=== PATIENT | female | born 1965 | race Caucasian/White ===

== ENCOUNTER 2018-05-15 11:54 | Emergency (ER) | payer OTHER ==
[~2018-05-15] VITALS: Ht 182.9 cm; Wt 56.7 kg
[~2018-05-15 11:54] MED LIST: NEXIUM20 MG PO; ZANTAC150 MG PO
[2018-05-15] MEDS ORDERED: INDOMETHACIN50 MG PO (14:03)
== END 2018-05-15 14:08 | disposition home or self-care (01) ==
LOC: ED 11:54
DX: R10.9 Unspecified abdominal pain (principal); F17.200 Nicotine dependence, unspecified, uncomplicated; Z88.2 Allergy status to sulfonamides
CPT/HCPCS: 74176; 81001; 96372; 99284-25; J2270; J2550

== ENCOUNTER 2018-07-19 07:40 | Day surgery (SDC) | payer OTHER ==
[~2018-07-19] VITALS: Ht 182.9 cm; Wt 56.2 kg
[~2018-07-19 07:40] MED LIST changes: +CYCLOBENZAPRINE10 MG PO; +GUMMI BEAR MUL1 EACH PO; +IBUPROFEN200 M1 PO; +INDOMETHACIN50 MG PO; +PREDNISONE20 MG PO
[2018-07-19] MEDS ORDERED: VITAMIN D250 MCG PO (07:53)
[2018-07-19] MEDS ORDERED: PRILOSEC OTC20 MG PO (07:54)
[2018-07-19] MEDS ORDERED: MOBIC7.5 MG PO (07:54)
--- NOTE | 2018-07-19 09:29 | NUR ---
07/19/18 0929 Roro Wilks 0923 PATIENT ARRIVES TO PACU SLEEPING, DOES NOT RESPOND TO VERBAL STIMULI. RESP EVEN AND UNLABORED, NC AT 2 LITERS. 09 PATIENT OPENES EYES, DOES NOT VERBALIZE, BACK TO SLEEP. RESP EVEN AND UNLABORED, OXYGEN OFF, ROOM AIR SATS >95%.
--- NOTE | 2018-07-19 12:29 | NUR ---
PT REPORTS THAT SHE FEELS LIKE SHE IS READY TO HEAD HOME. SHE IS EDUCATED TO SIT MUCH POSSIBLE WHILE DRESSING AND TO TAKE IT SLOW. PT AND ARE CHECKED ON, THE PT GOT NAUSEATED GETTING DRESSED AND LAID BACK DOWN. SHE IS GIVEN COFFEE AND CRACKERS TO SEE IF THIS HELPS. WILL CONTINUE TO MONITOR PT
--- NOTE | 2018-07-19 13:04 | NUR ---
PT IS FEELING BETTER AND WOULD LIKE TO GO HOME. SHE IS ABLE TO TRANSFER HERSELF TO THE . SHE IS TAKEN TO THE CAR VIA , WHERE SHE IS ABLE TO TRANSFER HERSELF FROM TO THE CAR.
--- NOTE | 2018-07-19 16:42 | OR ---
[facility] [address], [place] [address] Signed DATE OF OPERATION: 07/19/2018 SURGEON: Tricia Beltran MD PREOPERATIVE DIAGNOSIS: Screening. POSTOPERATIVE DIAGNOSIS: Minimal internal hemorrhoids. PROCEDURE PERFORMED: Colonoscopy without biopsy. ESTIMATED BLOOD LOSS: None. INDICATIONS: Glenis is a 53-year-old female, asked to come to see me for her initial screening colonoscopy. She told me she is adopted and has no knowledge of her biologic family. She is aware of colon cancer since her adoptive mother has been through colon cancer herself. In the office, I gave her a pamphlet on colonoscopy. We looked at that together along with the risks including, but not limited to gas bloating, crampy abdominal pain, bleeding, perforation, requiring surgery, and missed diagnosis. We also reviewed the need for IV conscious sedation. She had not only smokes some cigarettes each day, but she does use a little marijuana. I wonder that our standard Versed and fentanyl might not be sufficient for her sedation. She might need propofol depending on her response. She had expressed understanding and wished to proceed. PROCEDURE NOTE: Glenis was taken into our endoscopy suite and placed in a left lateral decubitus position. She was given IV sedation with 10 mg of Versed and 200 mcg of fentanyl. Even then, she was awake and talking and with her purposeful movement during the procedure. She is tall and has a long colon. It is not particularly difficult to pass the scope in her, but the Versed and fentanyl are probably not enough. In the future, she should strongly consider propofol infusion. Her digital rectal exam was unremarkable. The colonoscope had been inserted and advanced fairly readily with some resistance in the sigmoid colon in the splenic and hepatic flexures, but certainly not anything of above average. Fortunately, her scope was quite concerned. Fortunately, her prep was quite good. We eventually reached the cecum. We had taken pictures throughout for photodocumentation. The scope was slowly withdrawn. She had no diverticula and no Electronically Signed By: TRICIA BELTRAN MD 07/19/18 1642 PATIENT NAME: GLENIS SRINIVASAN OPERATIVE REPORT DATE OF : 67 REPORT #: [id number] PHYSICIAN: TRICIA BELTRAN MD PCP: THAI JUNG PA-C REPORT IS CONFIDENTIAL AND NOT TO BE RELEASED WITHOUT AUTHORIZATION [facility] [address], [place] [address] Signed polyps whatsoever. The scope had been retroflexed in the rectum and she does have just very tiny and standard internal hemorrhoid tissue. After this, the gas had been suctioned out and the colonoscope was removed. Overall, Glenis tolerated the procedure well. RECOMMENDATIONS: Glenis can follow up in 10 years for repeat colonoscopy. She needs to strongly consider propofol infusion based on the above findings. MD FAITH Morris/SEVERINOL /[id number] cc: MD Tricia Guillory MD Brown Jacqueline Copies: KADI LE MD, ANDREW L MD ~ Electronically Signed By: TRICIA BELTRAN MD 07/19/18 1642 PATIENT NAME: GLENIS SRINIVASAN OPERATIVE REPORT DATE OF : 67 REPORT #: [id number] PHYSICIAN: TRICIA BELTRAN MD PCP: THAI JUNG PA-C REPORT IS CONFIDENTIAL AND NOT TO BE RELEASED WITHOUT AUTHORIZATION
== END 2018-07-19 12:53 | disposition home or self-care (01) ==
LOC: OPS 07:40 → DS 07:40 → OPS 09:00 → DS 09:00 → OPS 12:53
PROVIDERS: Colon & Rectal Surgery
PROC: 0DJD8ZZ Inspection of Lower Intestinal Tract, Via Natural or Artificial Opening Endoscopic (ICD-10-PCS; principal; 2018-07-19 09:00)
DX: Z12.11 Encounter for screening for malignant neoplasm of colon (principal); K64.8 Other hemorrhoids; F17.210 Nicotine dependence, cigarettes, uncomplicated; Z88.2 Allergy status to sulfonamides; Z79.1 Long term (current) use of non-steroidal anti-inflammatories (NSAID); Z79.899 Other long term (current) drug therapy
CPT/HCPCS: 99153; G0500; J2250; J2405; J3010; J7120